=== PATIENT | male | born 1990 | race Caucasian/White ===

== ENCOUNTER → 2017-07-11 | Outpatient (REF) | payer MEDICAID, SELFPAY, OTHER ==
[2017-07-11 18:32] LABS: INFLUENZA A AMPLIFICATION NEGATIVE (NEGATIVE); INFLUENZA B AMPLIFICATION NEGATIVE (NEGATIVE)
== END ==
LOC: M LAB REF 08:52
DX: J11.1 Influenza due to unidentified influenza virus with other respiratory manifestations (principal)
CPT/HCPCS: 87502

== ENCOUNTER → 2017-09-16 | Outpatient (REF) | payer SELFPAY ==
[2017-09-16 22:24] LABS: ALBUMIN/GLOBULIN RATIO 0.93 (1.00-1.93); ALKALINE PHOSPHATASE 107 U/L (45-117); ALT/SGPT 88 U/L (12-78); ANION GAP 9 MEQ/L (8-16); AST/SGOT 200 U/L (7-37); BILIRUBIN,TOTAL 0.9 MG/DL (0.2-1.0); BLOOD UREA NITROGEN 8 MG/DL (7-18); CALCIUM LEVEL 8.5 MG/DL (8.5-10.1); CARBON DIOXIDE LEVEL 31 MEQ/L (21-32); CHLORIDE LEVEL 98 MEQ/L (98-107); CREATININE FOR GFR 0.92 MG/DL (0.70-1.30); FREE T4 1.14 NG/DL (0.76-1.46); GLOMERULAR FILTRATION RATE > 60.0 (>60); GLUCOSE, FASTING 118 MG/DL (70-100); POTASSIUM SERUM 3.8 MEQ/L (3.5-5.1); SODIUM LEVEL 138 MEQ/L (136-145); TOTAL PROTEIN 8.3 GM/DL (6.4-8.2)
== END ==
LOC: M SFHCADAM 16:02
DX: F41.9 Anxiety disorder, unspecified (principal)

== ENCOUNTER 2017-09-18 00:38 | Emergency (ER) | payer MEDICAID, SELFPAY ==
[2017-09-18 01:55] LABS: BASO # 0.1 10^3/uL (0.0-0.2); BASO % 1.3 % (0.0-1.0); EOS % 0.4 % (0.0-3.0); HEMATOCRIT 42.2 % (42.0-52.0); HEMOGLOBIN 15.4 g/dl (13.5-17.5); IMMATURE GRANULOCYTE % 0.4 % (0-3.0); LYMPH # 1.1 10^3/uL (1.5-6.5); LYMPH % 19.8 % (24.0-44.0); MEAN CORPUSCULAR HEMOGLOBIN 37.1 pg (27.0-33.0); MEAN CORPUSCULAR HGB CONC 36.5 g/dl (32.0-36.5); MEAN CORPUSCULAR VOLUME 101.7 fl (80.0-96.0); MONO # 0.4 10^3/uL (0.0-0.8); MONO % 7.3 % (0.0-5.0); NEUTROPHILS # 3.9 10^3/uL (1.8-7.7); NEUTROPHILS % 70.8 % (36.0-66.0); PLATELET COUNT, AUTOMATED 172 10^3/uL (150-450); RED BLOOD COUNT 4.15 10^6/uL (4.30-6.10); RED CELL DISTRIBUTION WIDTH 13.2 % (11.5-14.5); WHITE BLOOD COUNT 5.5 10^3/uL (4.0-10.0)
[2017-09-18] MEDS: NS 1,000 ML IV ×4 (01:55→02:55)
[2017-09-18] MEDS: OXAZEPAM 15 MG CAP PO ×2 (01:55)
[2017-09-18] MEDS: ONDANSETRON 4MG/2ML VIAL (J2405) IV ×2 (01:55)
[2017-09-18] MEDS: LORazepam 2 MG/ML VIAL (J2060) IV ×2 (01:55)
[2017-09-18 02:13] LABS: ALBUMIN 4.1 GM/DL (3.2-5.2); ALBUMIN/GLOBULIN RATIO 1.03 (1.00-1.93); ALKALINE PHOSPHATASE 96 U/L (45-117); ALT/SGPT 79 U/L (12-78); ANION GAP 11 MEQ/L (8-16); AST/SGOT 167 U/L (7-37); BILIRUBIN,DIRECT 0.6 MG/DL (0.0-0.2); BLOOD UREA NITROGEN 6 MG/DL (7-18); CARBON DIOXIDE LEVEL 27 MEQ/L (21-32); CHLORIDE LEVEL 98 MEQ/L (98-107); CREATININE FOR GFR 1.04 MG/DL (0.70-1.30); GLOMERULAR FILTRATION RATE > 60.0 (>60); GLUCOSE, FASTING 129 MG/DL (70-100); LIPASE 180 U/L (73-393); SODIUM LEVEL 136 MEQ/L (136-145); TOTAL PROTEIN 8.1 GM/DL (6.4-8.2)
[2017-09-18 02:19] LABS: ETHYL ALCOHOL (ETHANOL) < 0.003 % (0.000-0.010)
[2017-09-18] MEDS: POTASSIUM CHLORIDE 10 MEQ SR TABLET PO ×2 (04:39)
== END 2017-09-18 04:56 | disposition home or self-care (01) ==
LOC: M ED 00:38
DX: F10.988 Alcohol use, unspecified with other alcohol-induced disorder (principal); Z79.899 Other long term (current) drug therapy
CPT/HCPCS: J2405

== ENCOUNTER 2018-03-16 15:35 | Emergency (ER) | payer OTHER, MEDICAID ==
[2018-03-16] MEDS: LORazepam 2 MG/ML VIAL (J2060) IV (16:23)
[2018-03-16] MEDS ORDERED: LORazepam 2 MG/ML VIAL (J2060) As Ordered (16:24)
[2018-03-16 16:27] LABS: INR 1.03; PROTHROMBIN TIME 13.6 SECONDS (12.1-14.4)
[2018-03-16 16:28] LABS: PARTIAL THROMBOPLASTIN TIME 33.7 SECONDS (25.4-37.6)
[2018-03-16 17:07] LABS: BASO # 0.1 10^3/uL (0.0-0.2); BASO % 1.4 % (0.0-1.0); EOS % 0.4 % (0.0-3.0); HEMATOCRIT 43.9 % (42.0-52.0); HEMOGLOBIN 15.9 g/dl (13.5-17.5); IMMATURE GRANULOCYTE % 1.6 % (0-3.0); LYMPH # 1.2 10^3/uL (1.5-6.5); MEAN CORPUSCULAR HEMOGLOBIN 36.9 pg (27.0-33.0); MEAN CORPUSCULAR VOLUME 101.9 fl (80.0-96.0); MONO # 0.3 10^3/uL (0.0-0.8); MONO % 5.1 % (0.0-5.0); NEUTROPHILS # 3.5 10^3/uL (1.8-7.7); NEUTROPHILS % 68.5 % (36.0-66.0); PLATELET COUNT, AUTOMATED 130 10^3/uL (150-450); RED BLOOD COUNT 4.31 10^6/uL (4.30-6.10); RED CELL DISTRIBUTION WIDTH 13.5 % (11.5-14.5); WHITE BLOOD COUNT 5.1 10^3/uL (4.0-10.0)
[2018-03-16 17:10] LABS: MEAN CORPUSCULAR HGB CONC 36.2 g/dl (32.0-36.5)
[2018-03-16 18:05] LABS: ALBUMIN 3.9 GM/DL (3.2-5.2); ALBUMIN/GLOBULIN RATIO 0.53 (1.00-1.93); ALKALINE PHOSPHATASE 98 U/L (45-117); ALT/SGPT 136 U/L (12-78); AMYLASE 40 U/L (25-115); ANION GAP 13 MEQ/L (8-16); AST/SGOT 194 U/L (7-37); BILIRUBIN,DIRECT 0.2 MG/DL (0.0-0.2); BILIRUBIN,TOTAL 0.5 MG/DL (0.2-1.0); BLOOD UREA NITROGEN 5 MG/DL (7-18); CALCIUM LEVEL 7.1 MG/DL (8.5-10.1); CARBON DIOXIDE LEVEL 25 MEQ/L (21-32); CHLORIDE LEVEL 94 MEQ/L (98-107); CREATININE FOR GFR 0.93 MG/DL (0.70-1.30); GLOMERULAR FILTRATION RATE > 60.0 (>60); GLUCOSE, FASTING 209 MG/DL (70-100); LIPASE 235 U/L (73-393); POTASSIUM SERUM 3.8 MEQ/L (3.5-5.1); SODIUM LEVEL 132 MEQ/L (136-145); TOTAL PROTEIN 11.2 GM/DL (6.4-8.2)
[2018-03-16] MEDS: OXAZEPAM 15 MG CAP PO (18:45)
[2018-03-16] MEDS: PANTOPRAZOLE 40MG INJ (PROTONIX) (C9113) IV (19:51)
== END 2018-03-16 20:02 | disposition home or self-care (01) ==
LOC: M ED 15:35
DX: F10.239 Alcohol dependence with withdrawal, unspecified (principal); R11.2 Nausea with vomiting, unspecified; F41.9 Anxiety disorder, unspecified; Z79.899 Other long term (current) drug therapy
CPT/HCPCS: C9113

== ENCOUNTER 2019-01-23 14:05 | Emergency (ER) | payer OTHER ==
[~2019-01-23] VITALS: Ht 182.9 cm; Wt 95.3 kg
[~2019-01-23 14:05] MED LIST: CITA20TA6 PO; OXAZ10CA3 PO; OXAZ30CA2 PO; PRIL20TA2 PO
[2019-01-23 15:48] LABS: BASO # 0.1 10^3/uL (0.0-0.2); BASO % 0.8 % (0.0-1.0); EOS % 0.2 % (0.0-3.0); HEMATOCRIT 43.7 % (42.0-52.0); HEMOGLOBIN 15.4 g/dl (13.5-17.5); LYMPH # 0.8 10^3/uL (1.5-6.5); LYMPH % 12.5 % (24.0-44.0); MEAN CORPUSCULAR HEMOGLOBIN 35.3 pg (27.0-33.0); MEAN CORPUSCULAR HGB CONC 35.2 g/dl (32.0-36.5); MEAN CORPUSCULAR VOLUME 100.2 fl (80.0-96.0); MONO # 0.3 10^3/uL (0.0-0.8); MONO % 4.8 % (0.0-5.0); NEUTROPHILS # 5.4 10^3/uL (1.8-7.7); NEUTROPHILS % 81.4 % (36.0-66.0); PLATELET COUNT, AUTOMATED 212 10^3/uL (150-450); RED BLOOD COUNT 4.36 10^6/uL (4.30-6.10); WHITE BLOOD COUNT 6.6 10^3/uL (4.0-10.0)
[2019-01-23 16:06] LABS: ALBUMIN 3.9 GM/DL (3.2-5.2); ALT/SGPT 128 U/L (12-78); BILIRUBIN,DIRECT 0.6 MG/DL (0.0-0.2); BILIRUBIN,TOTAL 1.8 MG/DL (0.2-1.0); BLOOD UREA NITROGEN 6 MG/DL (7-18); CALCIUM LEVEL 9.2 MG/DL (8.5-10.1); CARBON DIOXIDE LEVEL 30 MEQ/L (21-32); CHLORIDE LEVEL 98 MEQ/L (98-107); CREATININE FOR GFR 0.77 MG/DL (0.70-1.30); GLOMERULAR FILTRATION RATE > 60.0 (>60); GLUCOSE, FASTING 107 MG/DL (70-100); LIPASE 101 U/L (73-393); POTASSIUM SERUM 3.8 MEQ/L (3.5-5.1); SODIUM LEVEL 139 MEQ/L (136-145); TOTAL PROTEIN 7.9 GM/DL (6.4-8.2)
[2019-01-23] MEDS ORDERED: THIAMINE 100 MG TAB PO ONE (17:15)
[2019-01-23] MEDS ORDERED: OXAZEPAM 15 MG CAP PO ONE (17:15)
[2019-01-23] MEDS ORDERED: NS 1,000 ML IV ONE (17:15)
[2019-01-23 17:30] VITALS: BP 119/85
[2019-01-23] MEDS ORDERED: OXAZ30CA2 PO (18:19)
== END 2019-01-23 18:32 | disposition home or self-care (01) ==
LOC: M ED 14:05
DX: F10.239 Alcohol dependence with withdrawal, unspecified (principal); Z79.899 Other long term (current) drug therapy

== ENCOUNTER 2019-08-07 14:48 | Emergency (ER) | payer OTHER ==
[~2019-08-07] VITALS: Ht 182.9 cm; Wt 94.5 kg
[2019-08-07] MEDS ORDERED: KETOROLAC 30 MG/ML VIAL (J1885) IV ONE (18:30)
[2019-08-07] MEDS ORDERED: CYCLOBENZAPRINE 10 MG TAB PO ONE (18:30)
[2019-08-07] MEDS ORDERED: diazePAM 5 MG TAB PO ONE (18:45)
[2019-08-07] MEDS ORDERED: NS 1,000 ML IV ONE (18:45)
--- NOTE | 2019-08-07 19:13 | REPVR ---
PROCEDURE INFORMATION: Exam: CT Lumbar Spine Without Contrast Exam date and time: 08/07/2019 6:21 PM Age: 29 years old Clinical indication: Low back pain TECHNIQUE: Imaging protocol: Computed tomography images of the lumbar spine without contrast. Radiation optimization: All CT scans at this facility use at least one of these dose optimization techniques: automated exposure control; mA and/or kV adjustment per patient size (includes targeted exams where dose is matched to clinical indication); or iterative reconstruction. COMPARISON: No relevant prior studies available. FINDINGS: Vertebrae: There is a mild scoliosis of the lumbar spine, apex to the right. No fracture or subluxation. Discs/Spinal canal/Neural foramina: There is minimal degenerative disc disease at L5-S1. No focal disc protrusion, nerve root impingement or spinal stenosis is identified. The remaining intervertebral disc spaces and vertebral bodies are unremarkable. The facet joints are intact. Sacrum/coccyx: There are minimal degenerative changes within the sacroiliac joints. Other bones/joints: Bone density is normal. Soft tissues: Unremarkable. IMPRESSION: No acute abnormality. Electronically signed by: Ankit Plascencia On 08/07/2019 19:12:38 PM
[2019-08-07] MEDS ORDERED: CYCL10TA PO (19:31)
[2019-08-07] MEDS ORDERED: KETO10TAB PO (19:31)
[2019-08-07 19:37] VITALS: BP 126/75
[2019-08-07] MEDS ORDERED: OXAZ10CA3 PO (19:50)
== END 2019-08-07 19:58 | disposition home or self-care (01) ==
LOC: M ED 14:48
DX: M54.30 Sciatica, unspecified side (principal); X50.3XXA Overexertion from repetitive movements, initial encounter; Y92.099 Unspecified place in other non-institutional residence as the place of occurrence of the external cause; Y93.29 Activity, other involving ice and snow; Y99.9 Unspecified external cause status; F41.9 Anxiety disorder, unspecified
CPT/HCPCS: 72131; 80047; 96361; 96374; 99284; G0480; J1885

== ENCOUNTER → 2020-03-17 | Outpatient (CLI) | payer OTHER ==
[~2020-03-17] MED LIST changes: +CYCL-707 PO; +KETO10TAB PO
== END ==
LOC: M LABSMTC 10:33
PROVIDERS: ATTEND Physical Medicine & Rehabilitation
DX: Z01.812 Encounter for preprocedural laboratory examination (principal); Z20.828 Contact with and (suspected) exposure to other viral communicable diseases

== ENCOUNTER → 2020-03-19 | Outpatient (CLI) | payer OTHER ==
[2020-03-19 14:11] LABS: PLATELET COUNT, AUTOMATED 246 10^3/uL (150-450)
[2020-03-19 14:21] LABS: INR 0.91; PROTHROMBIN TIME 12.4 SECONDS (12.5-14.3)
[2020-03-19 14:22] LABS: PARTIAL THROMBOPLASTIN TIME 30.6 SECONDS (24.2-38.5)
== END ==
LOC: M PLALAB 11:28
PROVIDERS: ATTEND Physician Assistant
DX: Z01.812 Encounter for preprocedural laboratory examination (principal)

== ENCOUNTER 2020-05-07 11:45 | Inpatient (IN) | payer OTHER ==
[~2020-05-07] VITALS: Ht 182.9 cm; Wt 98.5 kg
[2020-05-07] MEDS ORDERED: LORazepam 2 MG/ML VIAL IV STA ×4 (12:11→16:08)
[2020-05-07] MEDS ORDERED: MULTIVITAMIN -ADULT INJECTION 10 ML, THIAMINE INJection 100 MG, FOLIC ACID 1 MG in NS 1... IV ONE (12:15)
[2020-05-07 12:33] LABS: BASO % 0.8 % (0.0-1.0); HEMATOCRIT 49.1 % (42.0-52.0); HEMOGLOBIN 16.2 g/dl (13.5-17.5); LYMPH # 0.4 10^3/uL (1.5-5.0); LYMPH % 8.6 % (24.0-44.0); MEAN CORPUSCULAR HEMOGLOBIN 33.1 pg (27.0-33.0); MEAN CORPUSCULAR VOLUME 100.4 fl (80.0-96.0); MONO # 0.3 10^3/uL (0.0-0.8); MONO % 6.5 % (0.0-5.0); NEUTROPHILS # 4.1 10^3/uL (1.5-8.5); NEUTROPHILS % 83.7 % (36.0-66.0); PLATELET COUNT, AUTOMATED 210 10^3/uL (150-450); RED BLOOD COUNT 4.89 10^6/uL (4.30-6.10); WHITE BLOOD COUNT 4.9 10^3/uL (4.0-10.0)
[2020-05-07 13:03] LABS: ALBUMIN 4.7 GM/DL (3.2-5.2); ALT/SGPT 204 U/L (12-78); BILIRUBIN,DIRECT 0.5 MG/DL (0.0-0.2); BILIRUBIN,TOTAL 1.3 MG/DL (0.2-1.0); BLOOD UREA NITROGEN 15 MG/DL (7-18); CALCIUM LEVEL 9.9 MG/DL (8.5-10.1); CARBON DIOXIDE LEVEL 15 MEQ/L (21-32); CHLORIDE LEVEL 93 MEQ/L (98-107); CK-MB VALUE MASS < 1.0 NG/ML (<3.6); CPK CREATINE PHOSPHOKINASE 212 U/L (39-308); CREATININE FOR GFR 0.99 MG/DL (0.70-1.30); GLOMERULAR FILTRATION RATE > 60.0 (>60); GLUCOSE, FASTING 73 MG/DL (70-100); LIPASE 121 U/L (73-393); MB/CK RELATIVE INDEX 0.47 (< OR =4); POTASSIUM SERUM 4.2 MEQ/L (3.5-5.1); SODIUM LEVEL 135 MEQ/L (136-145); TOTAL PROTEIN 9.2 GM/DL (6.4-8.2); TROPONIN I < 0.02 NG/ML (< 0.10)
[2020-05-07 13:14] LABS: INR 1.02; PROTHROMBIN TIME 13.6 SECONDS (12.5-14.3)
--- NOTE | 2020-05-07 13:14 | REP ---
INDICATION: CHEST PAIN. COMPARISON: No comparison.. TECHNIQUE: Sitting AP portable radiograph. FINDINGS: The lungs are well inflated and clear. Monitoring electrodes are seen. Pleural angles are sharp. Heart is not enlarged. Pulmonary vasculature is not increased. IMPRESSION: Negative portable chest x-ray. <Electronically signed by Roberto Vincent > 05/07/20 [id number]
[2020-05-07] MEDS: LORazepam 2 MG TAB PO PRN ×2 (14:21→19:27)
[2020-05-07 14:38] LABS: ETHYL ALCOHOL (ETHANOL) 0.049 % (0.000-0.010)
[2020-05-07] MEDS ORDERED: LORazepam 2 MG TAB PO PRN (16:15)
[2020-05-07] MEDS ORDERED: ONDANSETRON 4MG/2ML VIAL IV ONE (16:15)
[2020-05-07] MEDS ORDERED: HALOPERIDOL 5MG/ML VIAL (J1630 PER 1) IV PRN (16:15)
[2020-05-07] MEDS: NS 1,000 ML IV SCH ×2 (16:19→20:19)
--- NOTE | 2020-05-07 17:08 | ECGEPIP ---
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
[2020-05-07] MEDS ORDERED: KETOROLAC 30 MG/ML 1ML VIAL IV PRN (17:45)
--- NOTE | 2020-05-07 17:50 | HPEPDOC ---
General Date of Admission 05/07/20 Date of Service: May 07, 2020 Chief Complaint The patient is a 30-year-old male admitted with a reason for visit of Back Pain. Source: Patient History of Present Illness 30 year old male with PMH of alcohol abuse, right lumber radiculopathy who has been drinking heavily for the last 3 months since he lost his job due to COVID and his back pain and his pain down the right leg has been acting up. He is supposed to get a cortisone shot on 05/25/20. He decided to get cleaned up before his shot and the up coming holidays so he stopped drinking last night. He estimates his last drink was about 2 am. He then presented to ED today about noon with tremors, difficulty in walking. He was found to be tachycardic hypertensive. His alcohol level was 0.047. He recieved multiple IV ativans and po ativan and a banana bag still continued to be tachycardic to 130s and hypertensive so hospitalist was consulted for admission for alcohol withdrawal. He complained of severe electric shock like pain down his right leg starting along the front at the hip then wrapping around the side of the lower thigh to the back of the leg and down to his foot whenever he tries to walk. He rates it 10/10 when the pain comes. This happens as soon as he tries to walk so has been having difficulty in ambulating. Home Medications No Active Prescriptions or Reported Meds Allergies Coded Allergies: No Known Allergies (Unverified , 09/21/17) Past Medical History Medical History RIGHT LUMBER RADICULOPATHY 07/1990 MENINGITIS ALCOHOL ABUSE CHRONIC ANXIETY WITH PANIC Surgical History Cortisone shot at the right hip Family History FATHER: ANXIETY, PROSTATE CANCER MOTHER: ANXIETY, MELANOMA Social History * Smoker: Denies Alcohol: heavy A-FIB/CHADSVASC A-FIB History Current/History of A-Fib/PAF?: No Review of Systems Constitutional: Denies: Chills, Fever, Night Sweats Eyes: Denies: Pain, Vision change ENT: Denies: Head Aches, Ear Pain, Dysphagia Skin: Denies: Rash, Lesions, Breakdown Pulmonary: Denies: Dyspnea, Cough Cardiovascular: Denies: Chest Pain, Palpitations, Orthopnea, Paroxysmal Noc. Dyspnea, Lt Headedness Gastrointestinal: Denies: Nausea, Vomiting, Abdominal Pain, Diarrhea Genitourinary: Denies: Dysuria, Frequency, Incontinence, Retention Hematologic: Denies: Bruising, Bleeding Excessively Musculoskeletal: Reports: Leg Pain, Joint Pain (right hip pain) Neurological: Reports: Incoordination, Other Symptoms (tremors) Psych: Reports: Anxiety Physical Examination General Exam: Positive: Alert, Cooperative, No Acute Distress Eye Exam: Positive: PERRLA, Conjunctiva & lids normal, EOMI; Negative: Sclera icteric ENT Exam: Positive: Atraumatic, Mucous membr. moist/pink, Pharynx Normal Neck Exam: Positive: Supple; Negative: JVD, thyromegaly Chest Exam: Positive: Clear to auscultation, Normal air movement Heart Exam: Positive: Tachycardic, Regular Rhythm, Normal S1, Normal S2; Negative: Gallops, Murmurs, Rubs Telemetry: Positive: Sinus, Tachycardia Abdomen Exam: Positive: Normal bowel sounds, Soft; Negative: Tenderness, Hepatospenomegaly Extremity Exam: Negative: Clubbing, Cyanosis, Edema Psych Exam: Positive: Memory Intact, Oriented x 3 Vital Signs Vital Signs Date Time Temp Pulse Resp B/P (MAP) Pulse Ox O2 Delivery O2 Flow Rate FiO2 05/07/20 14:21 124 168/101 05/07/20 13:42 20 99 Room Air 05/07/20 11:46 99.5 Laboratory Data Labs 24H Laboratory Tests 2 05/07/20 12:13: Immature Granulocyte % (Auto) 0.4, Neutrophils (%) (Auto) 83.7H, Lymphocytes (%) (Auto) 8.6L, Monocytes (%) (Auto) 6.5H, Eosinophils (%) (Auto) 0.0, Basophils (%) (Auto) 0.8, Neutrophils # (Auto) 4.1, Lymphocytes # (Auto) 0.4L, Monocytes # (Auto) 0.3, Eosinophils # (Auto) 0.0, Basophils # (Auto) 0.0, Nucleated Red Blood Cells % (auto) 0.0, Prothrombin Time 13.6, Prothromb Time International Ratio 1.02, Anion Gap 27H, Glomerular Filtration Rate > 60.0, Calcium Level 9.9, Total Bilirubin 1.3H, Direct Bilirubin 0.5H, Aspartate Amino Transf (AST/SGOT) 200H, Alanine Aminotransferase (ALT/SGPT) 204H, Alkaline Phosphatase 75, Total Creatine Kinase 212, Creatine Kinase MB < 1.0, Creatine Kinase MB Relative Index 0.47, Troponin I < 0.02, Total Protein 9.2H, Albumin 4.7, Albumin/Globulin Ratio 1.0, Lipase 121, Ethyl Alcohol Level 0.049H 05/07/20 15:49: CBC/BMP Laboratory Tests 05/07/20 12:13 Assessment/Plan 30 year old male with PMH of alcohol abuse, right lumber radiculopathy who has been drinking heavily for the last 3 months since he lost his job due to COVID and his back pain and his pain down the right leg has been acting up. He is supposed to get a cortisone shot on 05/25/20. He decided to get cleaned up before his shot and the up coming holidays so he stopped drinking last night. He estimates his last drink was about 2 am. He then presented to ED today about noon with tremors, difficulty in walking. He was found to be tachycardic hypertensive. His alcohol level was 0.047. He recieved multiple IV ativans and po ativan and a banana bag still continued to be tachycardic to 130s and hypertensive so hospitalist was consulted for admission for alcohol withdrawal. Alcohol abuse with withdrawal start serax scheduled and CIWA protocol Haldol prn for agitation/hallucination IVF. Alcoholic hepatitis elevation of transaminases will continue to monitor Hypertensive urgency due to alcohol withdrawal will give hydralazine as needed and start on amlodipine. Right lumber Radiculopathy will start on gabapentin, toradol prn. Anion gap metabolic acidosis due to alcohol. continue IVF. Macrocytosis due to alcohol Plan / VTE VTE Prophylaxis Ordered?: Yes NICK JEFF MD May 07, 2020 16:12
[2020-05-07] MEDS ORDERED: amLODIPine 10 MG TAB PO ONE (18:00)
[2020-05-07] MEDS: **hydrALAZINE HCL** 25 MG TAB PO SCH (19:27)
[2020-05-07] MEDS: OXAZEPAM 10 MG CAP PO SCH (19:27)
[2020-05-07 20:00] VITALS: BP 133/90
[2020-05-07] MEDS: GABAPENTIN 100 MG CAP PO SCH (20:13)
[2020-05-07] MEDS: THIAMINE 100 MG TAB PO SCH (20:14)
[2020-05-07] MEDS ORDERED: PANTOPRAZOLE 40MG VIAL (C9113 PER 1) IV SCH (21:00)
[2020-05-07] MEDS ORDERED: IBUPROFEN 800 MG TAB PO PRN (21:15)
[2020-05-07] MEDS: ONDANSETRON 4MG/2ML VIAL IV SCH (21:19)
[2020-05-08] VITALS (7 sets, daily range): BP systolic 126–144; BP diastolic 69–100
[2020-05-08] MEDS: OXAZEPAM 10 MG CAP PO SCH ×2 (00:26→05:48)
[2020-05-08] MEDS: ONDANSETRON 4MG/2ML VIAL IV SCH ×2 (03:32→09:47)
[2020-05-08] MEDS: **hydrALAZINE HCL** 25 MG TAB PO SCH ×3 (05:49→12:07)
[2020-05-08 05:55] LABS: BASO % 0.5 % (0.0-1.0); HEMATOCRIT 44.1 % (42.0-52.0); HEMOGLOBIN 14.9 g/dl (13.5-17.5); LYMPH # 0.6 10^3/uL (1.5-5.0); LYMPH % 13.4 % (24.0-44.0); MEAN CORPUSCULAR HEMOGLOBIN 34.1 pg (27.0-33.0); MEAN CORPUSCULAR HGB CONC 33.8 g/dl (32.0-36.5); MEAN CORPUSCULAR VOLUME 100.9 fl (80.0-96.0); MONO # 0.5 10^3/uL (0.0-0.8); NEUTROPHILS % 72.6 % (36.0-66.0); PLATELET COUNT, AUTOMATED 118 10^3/uL (150-450); RED BLOOD COUNT 4.37 10^6/uL (4.30-6.10); WHITE BLOOD COUNT 4.1 10^3/uL (4.0-10.0)
[2020-05-08 06:31] LABS: ALBUMIN 3.5 GM/DL (3.2-5.2); ALT/SGPT 157 U/L (12-78); BILIRUBIN,TOTAL 1.2 MG/DL (0.2-1.0); BLOOD UREA NITROGEN 12 MG/DL (7-18); CALCIUM LEVEL 8.8 MG/DL (8.5-10.1); CARBON DIOXIDE LEVEL 26 MEQ/L (21-32); CHLORIDE LEVEL 99 MEQ/L (98-107); CREATININE FOR GFR 0.79 MG/DL (0.70-1.30); GLOMERULAR FILTRATION RATE > 60.0 (>60); GLUCOSE, FASTING 99 MG/DL (70-100); POTASSIUM SERUM 3.8 MEQ/L (3.5-5.1); SODIUM LEVEL 134 MEQ/L (136-145); TOTAL PROTEIN 7.7 GM/DL (6.4-8.2)
[2020-05-08] MEDS: NS 1,000 ML IV SCH (08:06)
[2020-05-08] MEDS: GABAPENTIN 100 MG CAP PO SCH (08:07)
[2020-05-08] MEDS: THIAMINE 100 MG TAB PO SCH (08:07)
[2020-05-08 08:15] LABS: MAGNESIUM LEVEL 1.9 MG/DL (1.8-2.4)
[2020-05-08] MEDS ORDERED: MULTIVITAMINS/MINERALS THERAP 1 TAB PO SCH (09:00)
[2020-05-08] MEDS ORDERED: amLODIPine 10 MG TAB PO SCH (09:00)
[2020-05-08] MEDS ORDERED: FOLIC ACID 1 MG TAB PO SCH (09:00)
[2020-05-08] MEDS ORDERED: OXAZEPAM 10 MG CAP PO SCH (14:00)
[2020-05-08] MEDS ORDERED: FOLI1TAB11 PO (15:05)
[2020-05-08] MEDS ORDERED: AMLO1TAB24 PO (15:05)
[2020-05-08] MEDS ORDERED: OXAZ10CA3 PO (15:05)
[2020-05-08] MEDS ORDERED: IBUP80TA PO (15:05)
[2020-05-08] MEDS ORDERED: VITMTA PO (15:05)
[2020-05-08] MEDS ORDERED: THIA100TA PO (15:05)
--- NOTE | 2020-05-08 16:34 | DS.PDOC ---
Discharge Summary General Date of Admission May 07, 2020 at 16:06 Date of Discharge 05/08/20 Discharge Summary PROCEDURES PERFORMED DURING STAY: [None]. DISCHARGE DIAGNOSES: Alcohol abuse with alcohol withdrawal Alcoholic hepatitis Hypertensive urgency Right lumber radiculopathy Anion gap metabolic acidosis Macrocytosis COMPLICATIONS/CHIEF COMPLAINT: Alcohol Withdrawal. HOSPITAL COURSE: 30 year old male with PMH of alcohol abuse, right lumber radiculopathy who has been drinking heavily for the last 3 months since he lost his job due to COVID and his back pain and his pain down the right leg has been acting up. He is supposed to get a cortisone shot on 05/25/20. He decided to get cleaned up before his shot and the up coming holidays so he stopped drinking last night. He estimates his last drink was about 2 am. He then presented to ED today about noon with tremors, difficulty in walking. He was found to be tachycardic hypertensive. His alcohol level was 0.047. He recieved multiple IV ativans and po ativan and a banana bag still continued to be tachycardic to 130s and hypertensive so hospitalist was consulted for admission for alcohol withdrawal. Alcohol abuse with withdrawal Serax scheduled and CIWA protocol Haldol prn for agitation/hallucination IVF. Alcoholic hepatitis elevation of transaminases will continue to monitor slightly better today will check hepatitis panel Hypertensive urgency due to alcohol withdrawal resolved. will give hydralazine as needed and start on amlodipine. Right lumber Radiculopathy will start on gabapentin, toradol prn. Anion gap metabolic acidosis due to alcohol. resolved Macrocytosis due to alcohol DISCHARGE MEDICATIONS: Please see below. ALLERGIES: Please see below. PHYSICAL EXAMINATION ON DISCHARGE: VITAL SIGNS: Please see below. General Exam: Positive: Alert, Cooperative, No Acute Distress Eye Exam: Positive: PERRLA, Conjunctiva & lids normal, EOMI; Negative: Sclera icteric ENT Exam: Positive: Atraumatic, Mucous membr. moist/pink, Pharynx Normal Neck Exam: Positive: Supple; Negative: JVD, thyromegaly Chest Exam: Positive: Clear to auscultation, Normal air movement Heart Exam: Positive: Tachycardic, Regular Rhythm, Normal S1, Normal S2; Negative: Gallops, Murmurs, Rubs Telemetry: Positive: Sinus, Tachycardia Abdomen Exam: Positive: Normal bowel sounds, Soft; Negative: Tenderness, Hepatosplenomegaly Extremity Exam: Negative: Clubbing, Cyanosis, Edema Psych Exam: Positive: Memory Intact, Oriented x 3 LABORATORY DATA: Please see below. ACTIVITY: [As tolerated]. DIET: As tolerated DISCHARGE PLAN: Home DISCHARGE INSTRUCTIONS: PMD in 1 to 2 weeks ITEMS TO FOLLOWUP ON ON OUTPATIENT: Hepatitis profile DISCHARGE CONDITION: [Stable]. TIME SPENT ON DISCHARGE: 35 minutes. Vital Signs/I&Os Vital Signs Date Time Temp Pulse Resp B/P (MAP) Pulse Ox O2 Delivery O2 Flow Rate FiO2 05/08/20 15:03 105 128/98 (108) 05/08/20 08:00 99.4 18 99 Room Air 05/07/20 16:19 2.0 I&O- Last 24 Hours up to 6 AM 05/08/20 06:00 Intake Total 2561.2 ml Output Total 450 ml Balance 2111.2 ml Laboratory Data Labs 24H Laboratory Tests 2 05/08/20 05:22: Immature Granulocyte % (Auto) 0.5, Neutrophils (%) (Auto) 72.6H, Lymphocytes (%) (Auto) 13.4L, Monocytes (%) (Auto) 12.0H, Eosinophils (%) (Auto) 1.0, Basophils (%) (Auto) 0.5, Neutrophils # (Auto) 3.0, Lymphocytes # (Auto) 0.6L, Monocytes # (Auto) 0.5, Eosinophils # (Auto) 0.0, Basophils # (Auto) 0.0, Nucleated Red Blood Cells % (auto) 0.0, Anion Gap 9, Glomerular Filtration Rate > 60.0, Calcium Level 8.8, Magnesium Level 1.9, Total Bilirubin 1.2H, Aspartate Amino Transf (AST/SGOT) 158H, Alanine Aminotransferase (ALT/SGPT) 157H, Alkaline Phosphatase 57, Total Protein 7.7, Albumin 3.5#, Albumin/Globulin Ratio 0.8 CBC/BMP Laboratory Tests 05/08/20 05:22 Discharge Medications Scheduled Amlodipine Besylate (Amlodipine Besylate) 5 Mg Tablet, 1 TAB PO DAILY Folic Acid (Folic Acid) 1 Mg Tablet, 1 MG PO DAILY Multivitamins (Thera M Plus Tablet) 1 Each Tablet, 1 TAB PO DAILY Oxazepam (Oxazepam) 10 Mg Capsule, 1 CAP PO ASDIRECTED 2caps tonight, 05/09 1cap q6hrs x 1day, 05/10 1cap q8hrs x 1day, 05/11 1cap q12hrs x 1day, 05/12 1cap. Thiamine Hcl (Vitamin B-1) 100 Mg Tablet, 100 MG PO DAILY Scheduled PRN Ibuprofen (Ibuprofen) 800 Mg Tablet, 800 MG PO Q12HP PRN for MODERATE PAIN (PS 5-7) Allergies Coded Allergies: No Known Allergies (Unverified , 09/21/17) NICK JEFF MD May 08, 2020 16:34
[2020-05-08 17:23] LABS: HEPATITIS B SURFACE ANTIGEN NEGATIVE (NEGATIVE)
[2020-05-08 17:38] LABS: HEPATITIS B CORE ANTIBODY IGM NEGATIVE (NEGATIVE)
== END 2020-05-08 17:02 | disposition home or self-care (01) | DRG 775 ==
LOC: M ED 11:45 → M ED INP 16:06 → ENRESERV 17:51 → M PCU 19:58
PROVIDERS: ADMIT Internal Medicine Nephrology; ATTEND Internal Medicine Nephrology
DX: F10.239 Alcohol dependence with withdrawal, unspecified (principal); E87.2 Acidosis; K70.10 Alcoholic hepatitis without ascites; M54.16 Radiculopathy, lumbar region; I16.0 Hypertensive urgency; Z79.899 Other long term (current) drug therapy

== ENCOUNTER → 2020-05-15 | Outpatient (CLI) | payer OTHER ==
[~2020-05-15] MED LIST changes: +AMLO1TAB24 PO; +FOLI1TAB11 PO; +IBUP80TA PO; +THIA100TA PO; +VITMTA PO
== END ==
LOC: M LABSMTC 10:41
PROVIDERS: ATTEND Physical Medicine & Rehabilitation
DX: Z01.812 Encounter for preprocedural laboratory examination (principal); Z20.828 Contact with and (suspected) exposure to other viral communicable diseases

== ENCOUNTER → 2020-05-22 | Outpatient (REF) | payer OTHER ==
[2020-05-22 13:24] LABS: ALBUMIN 3.9 GM/DL (3.2-5.2); BILIRUBIN,DIRECT 0.1 MG/DL (0.0-0.2); BILIRUBIN,TOTAL 0.3 MG/DL (0.2-1.0); TOTAL PROTEIN 7.4 GM/DL (6.4-8.2)
== END ==
LOC: M SFHCADAM 11:21
PROVIDERS: ATTEND Family Medicine
DX: K70.9 Alcoholic liver disease, unspecified (principal)

== ENCOUNTER 2020-06-07 07:52 | Emergency (ER) | payer OTHER ==
[~2020-06-07] VITALS: Ht 182.9 cm; Wt 102.1 kg
[2020-06-07] MEDS ORDERED: KETOROLAC 60MG 2ML VIAL IM ONE (08:15)
[2020-06-07] MEDS ORDERED: AUGMENTIN 875 MG TAB PO ONE (08:15)
[2020-06-07] MEDS ORDERED: AUGM875T28 PO (08:15)
[2020-06-07 08:42] VITALS: BP 138/86
== END 2020-06-07 08:46 | disposition home or self-care (01) ==
LOC: M ED 07:52
DX: K04.7 Periapical abscess without sinus (principal); Z79.899 Other long term (current) drug therapy
CPT/HCPCS: 96372; 99283; J1885

== ENCOUNTER → 2020-10-01 | Outpatient (CLI) | payer OTHER ==
[~2020-10-01] MED LIST changes: +AUGM875T28 PO
[2020-10-01 10:07] LABS: BASO # 0.1 10^3/uL (0.0-0.2); BASO % 1.1 % (0.0-1.0); EOS # 0.2 10^3/uL (0.0-0.5); HEMATOCRIT 44.4 % (42.0-52.0); HEMOGLOBIN 15.1 g/dl (13.5-17.5); LYMPH % 30.8 % (24.0-44.0); MEAN CORPUSCULAR HEMOGLOBIN 31.9 pg (27.0-33.0); MEAN CORPUSCULAR VOLUME 93.9 fl (80.0-96.0); MONO # 0.4 10^3/uL (0.0-0.8); MONO % 6.3 % (2.0-8.0); NEUTROPHILS # 3.7 10^3/uL (1.5-8.5); NEUTROPHILS % 58.5 % (36.0-66.0); PLATELET COUNT, AUTOMATED 247 10^3/uL (150-450); RED BLOOD COUNT 4.73 10^6/uL (4.30-6.10); WHITE BLOOD COUNT 6.4 10^3/uL (4.0-10.0)
[2020-10-01 10:30] LABS: ALBUMIN 3.7 GM/DL (3.2-5.2)
== END ==
LOC: M LAB 09:02
PROVIDERS: ATTEND Orthopaedic Surgery
DX: M87.052 Idiopathic aseptic necrosis of left femur (principal); M87.051 Idiopathic aseptic necrosis of right femur

== ENCOUNTER 2020-11-01 13:45 | Outpatient (RCR) | payer OTHER | END 2020-11-04 | LOC: M PT 13:45 | PROVIDERS: ATTEND Orthopaedic Surgery | DX: Z47.89 Encounter for other orthopedic aftercare (principal); Z96.643 Presence of artificial hip joint, bilateral ==

== ENCOUNTER → 2020-12-04 | Outpatient (RCR) | payer OTHER, SELFPAY | LOC: M PT 11-05 14:30 | PROVIDERS: ATTEND Orthopaedic Surgery | DX: Z47.89 Encounter for other orthopedic aftercare (principal); Z96.643 Presence of artificial hip joint, bilateral ==

== ENCOUNTER 2020-12-16 12:58 | Outpatient (RCR) | payer OTHER, SELFPAY | END 2021-01-04 | LOC: M PT 12:58 | PROVIDERS: ATTEND Orthopaedic Surgery | DX: Z96.643 Presence of artificial hip joint, bilateral (principal); M25.552 Pain in left hip ==